=== PATIENT | female | born 1945 | race Caucasian/White ===

== ENCOUNTER 2018-04-30 08:37 | Outpatient (CLI) | payer MEDICARE, OTHER ==
[~2018-04-30] VITALS: Ht 170.2 cm; Wt 82.7 kg
--- NOTE | ~2018-04-30 | HP ---
PATIENT: BANDAR STEPHENS MEDICAL RECORD: [id number] ACCOUNT: [id number] LOCATION:DIRK : 47 ADMISSION DATE: 04/30/18 HISTORY AND PHYSICAL EXAMINATION DIAGNOSES: 1. Chest pain compatible with angina. 2. Visual disturbances. 3. Carotid vascular disease. 4. Coronary artery disease. 5. Hypertension. 6. Gastroesophageal reflux disease. HISTORY OF PRESENT ILLNESS: Mrs. Stephens presents with anginal symptomatology like that of her previous angina in an escalating unstable fashion. She as well has a history of carotid vascular disease and has had visual disturbances, right eye greater than left. REVIEW OF SYSTEMS: The patient reports easy bruising but reports no swollen glands. The patient reports no fever, no night sweats, no significant weight gain, no significant weight loss. No significant exercise tolerance. The patient reports no dry eyes, no irritation, no vision change. Patient reports no difficulty hearing and no ear pain. Patient reports no frequent nose bleeds or nose and sinus problems. Patient reports on arm pain on exertion. No shortness of breath while lying down. No history of heart murmur. Patient reports no cough, no wheezing or coughing up blood. Patient reports no abdominal pain, no vomiting. Normal appetite. No diarrhea and not vomiting blood. No nausea and no constipation. Patient reports no incontinence. No difficulty urinating. No hematuria. No increased frequency. Patient reports no muscle aches. No weakness, no arthralgias, no back pain. No swelling of the extremities. Patient reports no abnormal mole, no jaundice, no rashes. Reports no loss of consciousness. No weakness and no numbness. No seizures, dizziness, or headaches. The patient reports no depression, no sleep disturbance, feeling safe in a relationship and no alcohol abuse. Patient reports on fatigue. Reports no runny nose or sinus pressure. No itching, no hives, and no frequent sneezing. PHYSICAL EXAMINATION: GENERAL APPEARANCE: Well-nourished, well-developed, appears stated age. Level of distress, comfortable. PSYCHIATRIC: Mental status, alert, normal affect. Orientation, oriented to time, place and person. EYES: Lids and conjunctiva, noninjected. No discharge, no pallor. ENT: Lips, teeth, gums, normal dentition. Oropharynx, no cyanosis, no pallor. NECK: Carotid arteries, bilateral normal upstroke, no bruits, no thrills. JUGULAR VEINS: No jugular venous pressure or distention. CERVICAL LYMPH NODES: Nontender, nonenlarged. THYROID: Not enlarged. Nontender. No nodules. LUNGS: Respiratory effort, unlabored. CHEST: Normal curvature. No thoracic deformity. No chest wall tenderness. Percussion, resonant. Auscultation, clear. No wheezes, no rales, no rhonchi. CARDIOVASCULAR: Precordial exam, nondisplaced. No heaves or pericardial thrills. Rate and rhythm, regular. Heart sounds, normal S1, normal S2. No S3, no gallop, no rub. Systolic murmur, not heard. Diastolic murmur, not heard. EXTREMITIES: No cyanosis, no edema. Peripheral pulses, full and equal in all HISTORY AND PHYSICAL [id number] JUSTICE,BANDAR AUGUST extremities, except as noted. No bruits appreciated. ABDOMEN: Soft, nondistended. Normal aorta. No bruit. Nontender. No masses. Liver, nontender, no hepatomegaly. Spleen, nontender, no splenomegaly. MUSCULOSKELETAL: No joint tenderness. No joint swelling. No erythema. NEUROLOGICAL: Normal gait, normal strength, normal tone. SKIN: Warm and dry. OVERALL IMPRESSION: Anginal symptomatology, coronary artery disease, visual disturbances, carotid vascular disease. We will proceed with coronary angiography of 4 vessels, carotid and vertebral angiography. Further care depends upon findings of the angiography. TRANSINT:[id number] Voice Confirmation ID: [id number] DOCUMENT ID: [id number] HARMAN CAGLE MD at 1325 CC: [id number] DICTATION DATE: 04/30/18 1042 SUPERVISOR [employer]: 04/30/18 1145 DEP CLI 04/30/[address] [facility] [address] [id number]
--- NOTE | ~2018-04-30 | HEMODYNAMI ---
PATIENT:BANDAR STEPHENS MEDICAL RECORD: [id number] : 47 LOCATION:D.CAT ADMISSION DATE: 04/30/18 Generatedon:04/30/201811:00 Patient name: BANDAR STEPHENS Patient #: [id number] SSN: : 1945 Date of study: 04/30/2018 Page: Of Hemodynamic Procedure Report Patient Data Patient Demographics Procedure consent was obtained First Name: BANDAR Gender: Female Last Name: ANGELO : 1945 [facility] Initial: AUGUST Age: 72 year(s) Patient #: [id number] Race: Additional ID: [id number] Contact details Address: [address] [address] State: [place] City: [place] Zip code: [address] Past Medical History Allergies Allergen Reaction Date Comments Reported Sulfa drugs 11/20/2014 Sulfa drugs 04/30/2018 Admission Admission Data Admission Date: 04/30/2018 Admission Time: 8:37 Lab Results Lab Result Date: 04/30/2018 Lab Result Time: 0:00 Biochemistry Name Units Result Min Max BUN mg/dl 10 --(-*--)-- 7 18 Creatinine mg/dl 1 --(--*-)-- 0.6 1.3 CBC Name Units Result Min Max Hemoglobin g/dl 13 -*(----)-- 13.5 17.5 Procedure Procedure Types Cath Procedure Diagnostic Procedure [facility] w/Coronaries Peripheral Cath Diagnostic Procedure Cath Peripheral Four Vessel Arteriogram Procedure Description Procedure Date Procedure Date: 04/30/2018 Procedure Start Time: 10:46 Procedure End Time: 10:59 Procedure Staff Name Function Max Ivory MD Performing Physician Tony Robbins RT Monitor Paolo Leiva RN Nurse Rolly Aguilar RT Scrub Procedure Data Cath Procedure Fluoroscopy Diagnostic fluoroscopy Total fluoroscopy Time: 1.9 time: 1.9 min min Diagnostic fluoroscopy Total fluoroscopy dose: dose: 141.2 mGy 141.2 mGy Contrast Material Contrast Material Type Amount (ml) Isovue 300 96 Entry Location Entry Primary Successful Side Size Upsize Upsize Entry Closure Succes sful Closure Location (Fr) 1 (Fr) 2 (Fr) Remarks Device Remarks Femoral Right 5 Fr Exoseal artery Estimated blood loss: 10 ml Diagnostic catheters Device Type Used For End Catheter Placement MULTIPACK Pigtail 5 Fr Procedure catheter MULTIPACK JL 4.0 5Fr Procedure catheter MULTIPACK 3DRC 5Fr Procedure catheter DIAGNOSTIC JL 5 5Fr Procedure catheter ([id number]) Procedure Medications Medication Administration Route Dosage Oxygen etCO2 Nasal cannula 2 l/min Heparin Flush Bag added to field 2 bags (1000units/500ml NS) 0.9% NaCl I.V. 100 ml/hr Fentanyl I.V. 50 mcg Versed I.V. 1 mg Fentanyl I.V. 50 mcg Versed I.V. 1 mg Fentanyl I.V. 50 mcg Fentanyl I.V. 50 mcg Hemodynamics Rest HGB: 13 (g/dl) Heart Rate: 64 (bpm) Pressure Samples Time Site Value (mmHg) Purpose Heart Use Rate(bpm) 10:47 LV 106/12,11 Snapshot 69 Snapshots Pre Cath Intra NCS Post Cath Vital Signs Time Heart Resp SPO2 etCO2 NIBP (mmHg) Rhythm Pain Sedation Rate (ipm) (%) (mmHg) Status Level (bpm) 10:33:20 63 17 90 21.8 128/75(108) NSR 0 (11) 10(A) , No pain 10:37:39 65 17 100 20.3 130/72(112) NSR 0 (11) 10(A) , No pain 10:41:55 67 17 94 15 111/64(93) NSR 0 (11) 10(A) , No pain 10:46:11 65 16 96 18.8 104/62(76) NSR 0 (11) 10(A) , No pain 10:50:31 68 17 94 19.5 97/44(81) NSR 0 (11) 9(A) , No pain 10:54:43 73 16 98 24 103/59(89) NSR 0 (11) 9(A) , No pain 10:58:14 71 19 1.5 104/68(79) NSR 0 (11) 9(A) , No pain Medications Time Medication Route Dose Verified Delivered Reason Notes Effe ctiveness by by 10:37:07 Oxygen etCO2 2 Max Paolo Per Nasal l/min Cachorro Leiva RN physician cannula 10:37:16 Heparin Flush added 2 Max Boone used for Bag to bags Cachorro Leiva RN procedure (1000units/500ml field NS) 10:37:25 0.9% NaCl I.V. 100 Max Boone Per ml/hr Cachorro Leiva RN physician 10:45:50 Fentanyl I.V. 50 Max Boone for mcg Cachorro Leiva RN sedation 10:45:56 Versed I.V. 1 mg Max Boone for Cachorro Leiva RN sedation 10:48:04 Fentanyl I.V. 50 Max Hernandezy for mcg Cachorro Leiva RN sedation 10:48:08 Versed I.V. 1 mg Max Boone for Cachorro Leiva RN sedation 10:50:36 Fentanyl I.V. 50 Max Paolo for penelope Leiva RN sedation 10:51:13 Fentanyl I.V. 50 Max Hernandezy for penelope Leiva RN sedation Procedure Log Time Note 10:12:03 Paolo Leiva RN sent for patient. Start room use. 10:25:30 Informed consent obtained and on chart 10:25:35 Diagnostic Cath Status : Elective 10:26:05 Time tracking: Regular hours (M-F 7:00 - 5:00) 10:26:09 Plan of Care:Hemodynamics will remain stable., Cardiac rhythm will remain stable., Comfort level will be maintained., Respiratory function will remain adequate., Patient/ family verbilizes understanding of procedure., Procedure tolerated without complication., Recovers from procedure without complications.. 10:26:47 Patient received from Pre/Post Procedure Room to CCL 3 Alert and oriented. Tansferred to table in Supine position. 10:26:49 Warm blankets applied, and anton hugger turned on for patient comfort. 10:26:51 Correct patient and procedure confirmed by team. 10:31:45 ECG and BP/O2 sat monitors applied to patient. 10:32:09 Vital chart was started 10:36:28 Baseline sample Acquired. 10:36:31 Rhythm: sinus rhythm 10:36:33 Full Disclosure recording started 10:37:07 Oxygen 2 l/min etCO2 Nasal cannula was administered by Paolo Leiva RN; Per physician; 10:37:16 Heparin Flush Bag (1000units/500ml NS) 2 bags added to field was administered by Paolo Leiva RN; used for procedure; 10:37:25 0.9% NaCl 100 ml/hr I.V. was administered by Paolo Leiva RN; Per physician; 10:41:28 H&P Date Dictated: 04/30/2018 New H&P dictated by physician.. 10:41:50 Pre-procedure instructions explained to patient. 10:41:54 Pre-op teaching completed and patient verbalized understanding. 10:42:00 Family in waiting room. 10:42:02 Patient NPO since Midnight. 10:42:13 Patient allergic to Sulfa drugs 10:42:18 Is the patient allergic to Iodine/contrast media? No. 10:42:20 Is patient on blood thinner?Yes 10:42:24 ACC The patient was administered the following blood thiners within the last 24 hours: ACCPlavix 10:42:27 Patient diabetic? No. 10:42:33 Patient not . Patient is over age 55. 10:42:35 ----Pre-sedation anethsthesia assessment.---- 10:42:45 Previous problem with sedation/anesthesia? No ? 10:42:47 Snore? Yes 10:42:51 Sleep apnea? No 10:42:53 Deviated septum? No 10:42:54 Opens mouth fully? Yes 10:42:55 Sticks out tongue? Yes 10:42:58 Airway obstruction? No ? 10:43:02 Dentures? No ? 10:43:10 Pre procedure: right dorsailis pedis pulse 2+ Normal; easily identifiable; not easily obliterated 10:43:21 Patient pain scale 0/10 ?. 10:43:38 IV patent on arrival in left wrist with 0.9% NaCl at O. 10:44:50 Lab Result : BUN 10 mg/dl 10:44:50 Lab Result : Creatinine 1 mg/dl 10:44:50 Lab Result : Hemoglobin 13 g/dl 10:44:55 Lab results completed and on chart. 10:44:59 Right groin area was prepped with chlora-prep and draped in sterile fashion 10:45:03 Alarms reviewed by R. N. 10:45:04 Sharps counted by scrub and verified by RKeithNKeith 10:45:06 Physician arrived 10:45:06 --------ALL STOP TIME OUT------ 10:45:07 Final Timeout: patient, procedure, and site verified with staff and physician. All members of the team are in agreement. 10:45:08 Right groin site verified by team. 10:45:11 Physical assessment completed. ASA score P 2 - A patient with mild systemic disease as per Max Ivory MD. 10:45:16 Sedation plan: IV Moderate Sedation Medication:Versed, Fentanyl 10:45:50 Fentanyl 50 mcg I.V. was administered by Paolo Leiva RN; for sedation; 10:45:56 Versed 1 mg I.V. was administered by Paolo Leiva RN; for sedation; 10:45:56 Use device set Femoral Dx 10:45:57 ACIST Syringe (31188) opened to sterile field. 10:45:58 Bag Decanter (2002S) opened to sterile field. 10:45:58 Medline Cath Pack ([id number]) opened to sterile field. 10:45:59 DIAGNOSTIC WIRE .035 260cm J wire (563178) opened to sterile field. 10:46:01 ACIST Hand Control (76738) opened to sterile field. 10:46:02 ACIST Manifold (47689) opened to sterile field. 10:46:03 DIAGNOSTIC Multipack 5Fr catheter set ([id number]) opened to sterile field. 10:46:04 Tegaderm 4 x 4 (1626W) opened to sterile field. 10:46:05 SHEATH Prelude 5Fr 0.035 (APH-4B-32-035) opened to sterile field. 10:46:10 Procedure started. 10:46:14 Zero performed for pressure channel P1 10:46:22 Local anesthetic to right femoral artery with Lidocaine 2% by Max Ivory MD.INITIAL ACCESS ONLY 10:46:29 Zero performed for pressure channel P1 10:46:54 A 5 Fr sheath was inserted into the Right Femoral artery 10:47:01 A MULTIPACK Pigtail 5 Fr catheter was advanced over the wire and used for Procedure. 10:47:30 LV hemodynamics recorded. 10:47:32 LV gram done using OCAMPO 10:47:38 EF : 50 % 10:47:41 Catheter removed. 10:47:47 A MULTIPACK JL 4.0 5Fr catheter was advanced over the wire and used for Procedure. 10:48:04 Fentanyl 50 mcg I.V. was administered by Paolo Leiva RN; for sedation; 10:48:08 Versed 1 mg I.V. was administered by Paolo Leiva RN; for sedation; 10:48:50 Catheter removed. unable to cannulate vessel. 10:49:19 A MULTIPACK 3DRC 5Fr catheter was advanced over the wire and used for Procedure. 10:49:23 RCA angiography performed. 10:49:41 Right subclavian angiography performed 10:50:13 Left carotid angiography performed. 10:50:30 Left subclavian angiography performed 10:50:36 Fentanyl 50 mcg I.V. was administered by Paolo Leiva RN; for sedation; 10:50:43 Catheter removed. 10:50:55 A DIAGNOSTIC JL 5 5Fr catheter ([id number]) was advanced over the wire and used for Procedure. 10:51:13 Fentanyl 50 mcg I.V. was administered by Paolo Leiva RN; for sedation; 10:51:22 LCA angiography performed. 10:52:29 Catheter removed. 10:52:34 EXOSEAL 5Fr (EX500) opened to sterile field. 10:52:46 Sheath removed intact; hemostasis achieved with Exoseal to the Right Femoral artery. 10:52:49 Procedure ended.(Physican Out) 10:53:01 Fluoroscopy time 01.90 minutes. 10:53:43 Fluoroscopy dose: 141.2 mGy 10:53:43 Flurop Dose total: 141.2 10:53:51 Contrast amount:Isovue 300 96ml. 10:53:53 Sharps counted by scrub and verified by R.N. 10:54:29 Insertion/operative site no bleeding no hematoma. 10:55:11 Procedure type changed to Cath procedure, Diagnostic procedure, LHC, LHC w/Coronaries, Peripheral Cath Diagnostic Procedure, Cath Peripheral, Four Vessel Arteriogram 10:57:16 Post-op/insertion site Right Femoral artery dressed using a 4 x 4 and Tegaderm. 10:57:21 Post right femoral artery:stable 10:57:25 Post Procedure Pulses reassessed and unchanged 10:57:30 Post-procedure physical assessment completed. ASA score P 2 - A patient with mild systemic disease as per Max Ivory MD. 10:57:39 Post procedure rhythm: sinus bradycardia 10:57:43 Estimated blood loss: 10 ml 10:57:44 Post procedure instruction explained to patient.Patient verbalizes understanding. 10:57:45 Patient needs reinforcement of post procedure teaching. 10:57:47 Procedure and supply charges have been captured, reviewed, submitted and are correct. 10:58:53 Vital chart was stopped 10:58:53 See physician's report for complete and final results. 10:59:00 Report given to Pre/Post Procedure Room. 10:59:03 Patient transfered to Pre/Post Procedure Room with Stretcher. 10:59:05 Procedure ended. 10:59:05 Full Disclosure recording stopped 10:59:12 End room use (Document Last) Device Usage Item Name Manufacture Quantity Catalog Number Hospital Part Current M inimal Lot# / Charge Number Stock Stock Serial# Code ACIST Syringe Acist 1 07783 767529 500392 [id number] 2 0 (84331) [employer] Bag Decanter Microtek 1 2001S 056270 63397 952438 5 () Medical Inc. Medline Cath Cardinal 1 [id number] 677746 97349 308323 5 Pack Health ([id number]) DIAGNOSTIC WIRE [place] 1 286776 535288 899343 483944 3 0 .035 260cm J wire (315869) ACIST Hand Acist 1 44416 596823 556338 976213 5 Control (08409) [employer] ACIST Manifold Acist 1 79005 411617 671147 588140 5 (85196) [employer] Inc DIAGNOSTIC Cardinal 1 [id number] 943247 56595 480598 3 0 Multipack 5Fr Health catheter set ([id number]) Tegaderm 4 x 4 3M 1 1626W 521317 452716 755031 5 (1626W) SHEATH Prelude Merit 1 [id number] 902418 633943 808675 5 5Fr 0.035 Medical (COA-0R-24-035) MULTIPACK Cardinal 1 074068 5 Pigtail 5 Fr Health catheter MULTIPACK JL Cardinal 1 [id number] 5 4.0 5Fr Health catheter MULTIPACK 3DRC Cardinal 1 926309 5 5Fr catheter Health DIAGNOSTIC JL 5 Cardinal 1 [id number] 307108 879918 780000 5 5Fr catheter Health ([id number]) EXOSEAL 5Fr Cardinal 1 EX500 148109 480724 429452 1 0 (EX500) Health Signature Audit [place] Stage Time Signature Unsigned Intra-Procedure 04/30/2018 Tony Robbins 11:00:24 AM RT(R) (CV) Signatures Monitor : Tony Robbins RT Signature : Date : Time : [address] [place] [address]
--- NOTE | ~2018-04-30 | OP ---
PATIENT NAME: BANDAR STEPHENS MEDICAL RECORD: [id number] :47 LOCATION:D.CAT ADMISSION DATE: SURGEON: HARMAN CAGLE MD DATE OF OPERATION: 04/30/2018 PROCEDURES: 1. Left heart catheterization. 2. Selective coronary angiography. 3. Left ventriculogram. 4. Four-vessel carotid and vertebral angiography. INDICATION: Chest pain compatible with angina, coronary artery disease, carotid vascular disease, visual disturbances. PROCEDURE IN DETAIL: After informed consent was obtained and after a detailed explanation of risks, benefits as well as alternative therapies, the patient elected to proceed with angiogram and heart catheterization. The right femoral area was prepped and draped in normal sterile fashion. Right femoral artery was cannulated via modified Seldinger technique with placement of 5-Spanish sheath. All catheters exchanged through this sheath. FINDINGS: There was subselection of each subclavian as well as the left carotid. RIGHT SIDE: The common internal and external carotids have mild plaquing, no greater than 20%, no flow-limiting stenosis. Vertebral artery has no significant disease. LEFT SYSTEM: The common internal and external carotids have mild plaquing, none greater than 10% to 20%, no flow-limiting stenosis. Vertebral artery has no significant disease. Left ventriculogram was performed in standard 30-degree OCAMPO view, reveals good cardiac wall motion throughout all segments. Overall ejection fraction estimated 60%. SELECTIVE CORONARY ANGIOGRAPHY: 1. Left main has no significant angiographic disease. 2. Left anterior descending has previously placed stents in the LAD and diagonal. These are widely patent with no significant restenosis. No disease elsewise at the LAD or its branches. 3. Left circumflex has moderate irregularities, but no flow-limiting stenosis. 4. Right coronary has mild irregularities, but no flow-limiting stenosis. OVERALL IMPRESSION: Wide patency of the previously placed stents in the LAD and diagonal. No disease elsewise. Continue medical management of the coronary artery disease and cardiac risk factors. TRANSINT:[id number] Voice Confirmation ID: [id number] DOCUMENT ID: [id number] OPERATIVE REPORT [id number] BANDAR STEPHENS HARMAN CAGLE MD at 1325 CC: [id number] DICTATION DATE: 04/30/18 1057 EXECUTIVE SALES MANAGER: 04/30/18 1240 DEP CLI 04/30/18 [facility] [address] [facility] [place] [address]
[~2018-04-30 08:37] MED LIST: BAYER CHEWABLE81 MG PO; BYSTOLIC5 MG PO; COLACE100 MG PO; PLAVIX75 MG PO; PRINIVIL20 MG PO
[2018-04-30] MEDS ORDERED: ALPHAGAN P 0.155 ML EACH EYE (08:54)
[2018-04-30] MEDS ORDERED: HYZAAR 50-12.51 TAB PO (08:56)
[2018-04-30] MEDS ORDERED: MULTIPLE VITAMI1 TA1 PO (08:57)
[2018-04-30] MEDS ORDERED: OMEPRAZOLE40 MG PO (08:57)
[2018-04-30 09:21] VITALS: BP 166/90; Ht 170.2 cm; Wt 82.7 kg
[2018-04-30 09:23] LABS: BASOPHILS 0.4 % (0-2); EOSINOPHILS 3.4 % (0-7); HEMATOCRIT 38.8 % (36.0-48.0); IMMATURE GRANULOCYTES 0.3 % (0-5); LYMPHOCYTES 19.5 % (15-50); MCH 31.2 pg (26.0-34.0); MCHC 33.5 g/dL (31.0-37.0); MEAN PLATELET VOLUME 9.5 fL (7.4-10.4); NEUTROPHILS 64.4 % (40-80); PLATELET COUNT 350 10x3/uL (130-400); RBC 4.17 10x6/uL (4.00-5.40)
[2018-04-30 09:35] LABS: ANION GAP 13.5 mmol/L (8-16); CALCIUM 8.6 mg/dL (8.5-10.1); CARBON DIOXIDE 28.1 mmol/L (21.0-32.0); POTASSIUM - SERUM 3.6 mmol/L (3.5-5.1)
== END 2018-04-30 13:22 | disposition home or self-care (01) ==
LOC: D.CATH 08:37
PROVIDERS: Internal Medicine Interventional Cardiology
DX: I25.119 Atherosclerotic heart disease of native coronary artery with unspecified angina pectoris (principal); I65.23 Occlusion and stenosis of bilateral carotid arteries; H53.9 Unspecified visual disturbance; Z95.5 Presence of coronary angioplasty implant and graft; Z01.812 Encounter for preprocedural laboratory examination

== ENCOUNTER → 2018-05-10 12:52 | Outpatient (CLI) | payer MEDICARE, OTHER ==
[2018-04-30 09:21] VITALS: BMI 28.5
[~2018-05-10 12:52] MED LIST changes: +ALPHAGAN P 0.155 ML EACH EYE; +HYZAAR 50-12.51 TAB PO; +MULTIPLE VITAMI1 TA1 PO; +OMEPRAZOLE40 MG PO
== END | disposition home or self-care (01) ==
LOC: D.CT 12:52
DX: R10.9 Unspecified abdominal pain (principal)

== ENCOUNTER → 2018-07-23 17:10 | Outpatient (CLI) | payer MEDICARE, OTHER ==
[2018-04-30 09:21] VITALS: BMI 28.5
== END | disposition home or self-care (01) ==
LOC: D.MAMMO 05-21 15:00
DX: Z12.31 Encounter for screening mammogram for malignant neoplasm of breast (principal)

== ENCOUNTER 2019-01-15 11:55 | Observation (INO) | payer MEDICARE, OTHER ==
[~2019-01-15] VITALS: Ht 170.2 cm; Wt 81.4 kg
--- NOTE | ~2019-01-15 | HEMODYNAMI ---
PATIENT:BANDAR STEPHENS MEDICAL RECORD: [id number] : 47 LOCATION:[facility] ADMISSION DATE: 01/15/19 Generatedon:01/16/201912:46 Patient name: BANDAR STEPHENS Patient #: [id number] SSN: : 1945 Date of study: 01/16/2019 Page: Of Hemodynamic Procedure Report Patient Data Patient Demographics Procedure consent was obtained First Name: BANDAR Gender: Female Last Name: ANGELO : 1945 [facility] Initial: AUGUST Age: 73 year(s) Patient #: [id number] Race: Additional ID: [id number] Contact details Address: [place] [address] State: [place] City: [place] Zip code: [address] Past Medical History Allergies Allergen Reaction Date Comments Reported Sulfa drugs 11/20/2014 Sulfa drugs 04/30/2018 Admission Admission Data Admission Date: 01/15/2019 Admission Time: 11:55 Room #: [facility] Procedure Procedure Types Cath Procedure Diagnostic Procedure [facility] w/Coronaries Cardioversion External PCI Procedure PTCA PTCA Initial PTCA Additional Procedure Description Procedure Date Procedure Date: 01/16/2019 Procedure Start Time: 12:24 Procedure End Time: 12:40 Procedure Staff Name Function Max Ivory MD Performing Physician Rolly Aguilar RT Monitor Margarita Fountain RT Scrub Elvin Kauffman RN Nurse Cecil Frederick MD Additional personnel Procedure Data Cath Procedure Fluoroscopy Diagnostic fluoroscopy Total fluoroscopy Time: 3.4 time: 3.4 min min Diagnostic fluoroscopy Total fluoroscopy dose: 596 dose: 596 mGy mGy Contrast Material Contrast Material Type Amount (ml) Isovue 300 70 Entry Location Entry Primary Successful Side Size Upsize Upsize Entry Closure Chicas ccessful Closure Location (Fr) 1 (Fr) 2 (Fr) Remarks Device Remarks Radial Right 6 Fr Mechanical artery Short Compression Estimated blood loss: 10 ml Diagnostic catheters Device Type Used For End Catheter Placement DIAGNOSTIC Canby 110cm 5 Procedure Fr catheter ([id number]) Procedure Complications No complications Procedure Medications Medication Administration Route Dosage 0.9% NaCl I.V. 100 ml/hr Oxygen etCO2 Nasal cannula 2 l/min Heparin Flush Bag added to field 2 bags (1000units/500ml NS) Lidocaine 2% added to field 20 Radial Cocktail added to field 1 syringe (Verapomil 2mg/Nitro 400mcg/Heparin 1500units) Refer to Anesthesia Notes for Sedation Medications Radial Cocktail I.A. 1 syringe (Verapomil 2mg/Nitro 400mcg/Heparin 1500units) Heparin Bolus I.V. 4000 units Integrilin (Bolus I.V. 7.3 ml 2mg/ml) Integrilin (Bolus wasted 2.7 ml 2mg/ml) Hemodynamics Rest Heart Rate: 81 (bpm) Snapshots Pre Cath Intra NCS Post Cath Vital Signs Time Heart Resp SPO2 etCO2 NIBP (mmHg) Rhythm Pain Sedation Rate (ipm) (%) (mmHg) Status Level (bpm) 12:20:51 76 20 99 5.1 156/108(143) NSR 0 (11) 10(A) , No pain 12:25:09 83 22 95 25.1 146/107(127) NSR 0 (11) 10(A) , No pain 12:29:19 72 18 92 28.1 111/76(92) NSR 0 (11) 8(A) , No pain 12:33:25 65 32 92 12.5 108/70(84) NSR 0 (11) 8(A) , No pain 12:37:33 61 31 93 3.7 107/60(77) NSR 0 (11) 9(A) , No pain Medications Time Medication Route Dose Verified Delivered Reason Not es Effectiveness by by 12:20:07 0.9% NaCl I.V. 100 Elvin Elvin Per physician ml/hr Jamari Kauffman RN RN 12:20:15 Oxygen etCO2 2 l/min Elvin Elvin for low 02 sats Nasal Sheritaigan Jamari cannula RN RN 12:20:29 Heparin Flush added 2 bags Elvin Elvin used for Bag to Jamari Kauffman procedure (1000units/500ml field RN RN NS) 12:20:39 Lidocaine 2% added 20ml Elvin Elvin for local to vial Lorigan Lorigan anesthetic field RN RN 12:20:48 Radial Cocktail added 1 Elvin Elvin used for (Verapomil to syringe Jamari Kauffman procedure 2mg/Nitro field RN RN 400mcg/Heparin 1500units) 12:22:33 Refer to Elvinmilagro Oconnor for sedation Anesthesia Notes Jamari Kauffman for Sedation RN RN Medications 12:24:24 Radial Cocktail I.A. 1 Elvin Max for (Verapomil syringe Jamari Ivory MD vasodilation 2mg/Nitro RN 400mcg/Heparin 1500units) 12:32:44 Heparin Bolus I.V. 4000 Elvin Elvin for units Jamari Kauffman anticoagulation RN RN 12:33:01 Integrilin I.V. 7.3 ml Elvin Elvin for (Bolus 2mg/ml) Jamari Kauffman antiplatelet RN RN therapy 12:33:15 Integrilin wasted 2.7 ml Elvin Elvin to sharp's (Bolus 2mg/ml) Jamari Kauffman RN supervisor quality control Log Time Note 11:45:29 Rolly Aguilar RT(R) sent for patient. Start room use. 11:51:37 Time tracking: Regular hours (M-F 7:00 - 5:00) 11:51:43 Plan of Care:Hemodynamics will remain stable., Cardiac rhythm will remain stable., Comfort level will be maintained., Respiratory function will remain adequate., Patient/ family verbilizes understanding of procedure., Procedure tolerated without complication., Recovers from procedure without complications.. 12:00:25 Cecil Frederick MD present and monitoring patient for TIVA. 12:06:23 Patient received from Med II to CCL 2 Alert and oriented. Tansferred to table in Supine position. 12:06:25 Warm blankets applied, and anton hugger turned on for patient comfort. 12:06:25 Correct patient and procedure confirmed by team. 12:06:28 Signed procedure consent form obtained from patient. 12:06:30 ECG and BP/O2 sat monitors applied to patient. 12:19:44 Vital chart was started 12:19:45 Baseline sample Acquired. 12:19:55 Rhythm: atrial fibrillation 12:19:57 Full Disclosure recording started 12:20:03 H&P Date Dictated: 01/16/2019 Within 30 days and on chart., H&P Addendum completed by physician on day of procedure. (MUST COMPLETE FOR ALL OUTPATIENTS). 12:20:04 Pre-procedure instructions explained to patient. 12:20:05 Pre-op teaching completed and patient verbalized understanding. 12:20:06 Family in patients room. 12:20:07 0.9% NaCl 100 ml/hr I.V. was administered by Elvin Kauffman RN; Per physician; 12:20:07 Patient NPO since Midnight. 12:20:10 Is the patient allergic to Iodine/contrast media? No. 12:20:12 Is patient on blood thinner?Yes 12:20:14 ACC The patient was administered the following blood thiners within the last 24 hours: Eliquis 12:20:15 Oxygen 2 l/min etCO2 Nasal cannula was administered by Elvin Kauffman RN; for low 02 sats; 12:20:16 Patient diabetic? No. 12:20:19 Previous problem with sedation/anesthesia? No ? 12:20:19 Snore? Yes 12:20:20 Sleep apnea? No 12:20:21 Deviated septum? No 12:20:22 Opens mouth fully? Yes 12:20:22 Sticks out tongue? Yes 12:20:24 Airway obstruction? No ? 12:20:25 Dentures? No ? 12:20:28 Pre procedure: right dorsailis pedis pulse 1+ Palpable, but thready & weak; easily obliterated 12:20:29 Heparin Flush Bag (1000units/500ml NS) 2 bags added to field was administered by Elvin Kauffman RN; used for procedure; 12:20:30 Modified Sai's test Ulnar < 7 seconds 12:20:31 Patient pain scale 0/10 ?. 12:20:37 IV patent on arrival in left forearm with 0.9% NaCl at [facility]. 12:20:39 Lidocaine 2% 20ml vial added to field was administered by Elvin Kauffman RN; for local anesthetic; 12:20:39 Lab results completed and on chart. 12:20:42 Right Radial & Right Groin area was prepped with chlora-prep and draped in sterile fashion 12:20:43 Alarms reviewed by R. N. 12:20:43 Sharps counted by scrub and verified by R.N. 12:20:45 --------ALL STOP TIME OUT------ 12:20:45 Final Timeout: patient, procedure, and site verified with staff and physician. All members of the team are in agreement. 12:20:47 Right Radial & Right Groin site verified by team. 12:20:48 Radial Cocktail (Verapomil 2mg/Nitro 400mcg/Heparin 1500units) 1 syringe added to field was administered by Elvin Kauffman RN; used for procedure; 12:20:50 Maximum allowable Isovue 300 dose 300ml. Physician notified. (300ml for normal creatinines. For patients with creatinine of 1.7 or higher multiply weight(kg) x 5 divided by creatinine.) 12:20:54 Fire Safety Assessment: A--An alcohol-based skin anteseptic being used preoperatively., C--Open oxygen or nitrous oxide is being used., D--An ESU, laser, or fiber-optic light is being used. 12:20:56 Physical assessment completed. ASA score P 2 - A patient with mild systemic disease as per Max Ivory MD. 12:20:59 Sedation plan: IV Moderate Sedation Medication:Versed, Fentanyl 12:22:33 Refer to Anesthesia Notes for Sedation Medications was administered by Elvin Kauffman RN; for sedation; 12:23:52 Procedure started. 12:24:05 Local anesthetic to right radial artery with Lidocaine 2% by Max Ivory MD.INITIAL ACCESS ONLY 12:24:24 Radial Cocktail (Verapomil 2mg/Nitro 400mcg/Heparin 1500units) 1 syringe I.A. was administered by Max Ivory MD; for vasodilation; 12:24:53 Use device set Radial Dx or PCI 12:24:55 Tegaderm 4 x 4 (1626W) opened to sterile field. 12:24:56 ACIST Manifold (92017) opened to sterile field. 12:24:56 ACIST Hand Control (99180) opened to sterile field. 12:24:58 ACIST Syringe (24872) opened to sterile field. 12:24:58 Medline Cath Pack ([id number]) opened to sterile field. 12:24:58 Bag Decanter (2002) opened to sterile field. 12:24:59 DIAGNOSTIC WIRE .035 260cm J wire (590253) opened to sterile field. 12:24:59 MBrace Wrist Support ([id number]) opened to sterile field. 12:25:22 Quick combo pads placed on patients chest and back. 12::30 Quick Combo opened to sterile field. 12::01 Defibrillator synced and charged to 275 Joules. 12::21 Shock delivered. 12::25 Patient cardioverted to sinus rhythm . 12::29 SHEATH 6FR Slender (80-1060) opened to sterile field. 12::44 A 6 Fr Short sheath was inserted into the Right Radial artery 12::54 A DIAGNOSTIC Canby 110cm 5 Fr catheter (860340) was advanced over the wire and used for Procedure. 12:28:15 LV angiography performed. 12:28:16 LV gram done using OCAMPO 12::21 EF : 35 % 12::24 Injector settings: Ml/sec: 7, Volume: 15, 12:29:06 RCA angiography performed. 12:30:21 Use device set TAUTH PCI 12:30:28 CHOICE PT Extra Support 182cm wire ([id number]) opened to sterile field. 12:30:31 INFLATOR Merit BasixCompak (NP1261) opened to sterile field. 12:30:39 GUIDE 6FR XBLAD 3.5 catheter ([id number]) opened to sterile field. 12:30:48 LCA angiography performed. 12:30:50 Catheter removed. 12:31:08 6 Fr XBLAD 3.5 guide catheter was inserted over the wire 12:31:32 CPTXS wire advanced. 12:32:15 Wire advanced across lesion. 12:32:44 Heparin Bolus 4000 units I.V. was administered by Elvin Kauffman RN; for anticoagulation; 12:32:55 Inflate balloon Inflation number: 1 A EUPHORA 2.5 x 12 Balloon ([id number]) was prepped and advanced across the 1st Diag, then inflated to 17 ISABELLA for 0:10 (min:sec). 12:33:01 Integrilin (Bolus 2mg/ml) 7.3 ml I.V. was administered by Elvin Kauffman RN; for antiplatelet therapy; 12:33:15 Integrilin (Bolus 2mg/ml) 2.7 ml wasted was administered by Elvin Kauffman RN; to sharp's; 12:34:16 Wire redirected to LAD. 12:34:50 Inflation number: 1 The EUPHORA 2.5 x 12 Balloon ([id number]) was reinflated across the Mid LAD, to 13 ISABELLA for 0:10 (min:sec). 12:35:08 Multiple inflations made at 13 Atms. 12:35:28 TR BAND Standard ([id number]) opened to sterile field. 12:35:41 Balloon removed over the wire. 12:35:42 Wire removed. 12:35:42 Guide catheter removed. 12:36:04 Sheath removed intact; hemostasis achieved with Mechanical Compression to the Right Radial artery. 12:36:06 Procedure ended.(Physican Out) 12:38:35 Fluoroscopy time 03.40 minutes. 12:38:38 Fluoroscopy dose: 596 mGy 12:38:38 Flurop Dose total: 596 12:38:44 Contrast amount:Isovue 300 70ml. 12:38:48 Sharps counted by scrub and verified by R.N. 12:38:50 Insertion/operative site no bleeding no hematoma. 12:38:56 TR band inflated with 12cc of air. 12:39:01 Post Procedure Pulses reassessed and unchanged 12:39:06 Post-procedure physical assessment completed. ASA score P 2 - A patient with mild systemic disease as per Max Ivory MD. 12:39:09 Post procedure rhythm: unchanged. 12:39:11 Estimated blood loss: 10 ml 12:39:12 Post procedure instruction explained to patient.Patient verbalizes understanding. 12:39:13 Patient needs reinforcement of post procedure teaching. 12:39:28 Procedure type changed to Cath procedure, Diagnostic procedure, LHC, LHC w/Coronaries, Cardioversion External, PCI procedure, PTCA, PTCA Initial, PTCA Additional 12:39:30 Procedure and supply charges have been captured, reviewed, submitted and are correct. 12:39:32 Procedure Complication : No complications 12:40:27 Vital chart was stopped 12:40:28 See physician's report for complete and final results. 12:40:31 Report given to PCU. 12:40:34 Patient transfered to PCU with Bed. 12:40:35 Procedure ended. 12:40:35 Full Disclosure recording stopped 12:43:51 End room use (Document Last) Intervention Summary Intervention Notes Time ActionType Lesion and Equipment Action# Pressure Duration Attributes Used 12:32:55 Inflate 1st Diag EUPHORA 1 17 00:10 balloon 2.5 x 12 Balloon ([id number]) 12:34:50 Reinflate Mid LAD EUPHORA 1 13 00:10 balloon 2.5 x 12 Balloon ([id number]) Device Usage Item Name Manufacture Quantity Catalog Number Hospital Part Current Minim al Lot# / Charge Number Stock Stock Serial# Code Tegaderm 4 3M 1 1626W [id number] 643977 784002 5 x 4 (1626W) ACIST Acist 1 82150 094735 194692 847787 5 Manifold Medical (13913) Systems Inc ACIST Hand Acist 1 43642 225822 406867 251481 5 Control Medical (65438) Systems Inc ACIST Acist 1 43860 431321 570042 691390 20 Syringe Medical (78604) Systems Inc Medline Medline 1 [id number] 854421 19411 358846 5 Cath Pack ([id number]) Bag Microtek 1 2001S 890297 74295 246408 5 DecRogate Inc. () DIAGNOSTIC [place] 1 085369 621614 587797 423715 30 WIRE .035 260cm J wire (404839) MBrace Advanced 1 140-0250-00 405325 42165 238658 5 Wrist Vascular Support Dynamics (498946339) Quick Combo Trading Blox Systems 1 95405-925770 425549 766225 085681 5 SHEATH 6FR Terumo 1 [id number] 354857 869230 979653 5 Slender (80-1060) DIAGNOSTIC Terumo 1 40-0033 234094 156397 956990 5 Canby 110cm 5 Fr catheter (322536) CHOICE PT [place] 1 [id number] 783954 910207 879938 5 Extra Scientific Support 182cm wire ([id number]) INFLATOR Merit 1 TA3369 369513 223800 442078 15 Competitive [employer] Ventures Medical BasixCompak (ZK0876) GUIDE 6FR Cardinal 1 [id number] 961755 557789 336340 10 XBLAD 3.5 Health catheter (34355371) EUPHORA 2.5 Medtronic 1 [id number] 569664 667104 805049 5 [id number] x 12 Balloon (UTL2227P) TR BAND Terumo 1 [id number] 044942 213008 975076 40 Standard ([id number]) Signature Audit [place] Stage Time Signature Unsigned Intra-Procedure 01/16/2019 Rolly Aguilar 12:46:31 PM RT(R) Signatures Monitor : Rolly Aguilar RT Signature : Date : Time : [address] [address]
--- NOTE | 2019-01-15 12:13 | NUR ---
TRANSFER FROM ADMISSIONS BY W/C. OREINTED TO ROOM. CALL LIGHT IN REACH. WILL CONT. PLAN OF CARE.
--- NOTE | 2019-01-15 12:34 | NUR ---
IV STARTED TO LEFT WRIST WITH 20 GAUGE CATH X1 STICK AND FLUSHED WITH NS. LINE IS PATENT.
[2019-01-15] MEDS ORDERED: COLACE100 MG PO (12:44)
--- NOTE | 2019-01-15 12:44 | NUR ---
EKG COMPLETED AND ON CHART.
[2019-01-15 12:47] VITALS: BP 142/92; Ht 170.2 cm; Wt 81.4 kg
[2019-01-15 13:47] LABS: CALC OSMOLALITY 282 mosm/kg (275-300); CALCIUM 8.1 mg/dL (8.5-10.1); CARBON DIOXIDE 27.5 mmol/L (21.0-32.0); CHLORIDE - SERUM 102 mmol/L (98-107); CREATINE KINASE 41 UL (21-215); CREATININE - SERUM 1.2 mg/dL (0.6-1.3); GLUCOSE 223 mg/dL (74-106); POTASSIUM - SERUM 3.5 mmol/L (3.5-5.1); SODIUM 138 mmol/L (136-145); TROPONIN-I < 0.017 ng/mL (0.000-0.060); UREA NITROGEN 12 mg/dL (7-18); eGFR NON AFRICAN AMERICAN 47 mL/min (90-120)
[2019-01-15 14:08] LABS: CKMB 0.7 U/L (0.0-3.6)
[2019-01-15 17:26] VITALS: BP 138/76
[2019-01-15 18:41] LABS: CKMB 0.6 U/L (0.0-3.6); CREATINE KINASE 28 UL (21-215)
[2019-01-15 18:48] LABS: TROPONIN-I < 0.017 ng/mL (0.000-0.060)
--- NOTE | 2019-01-15 19:27 | NUR ---
RESUMING PATIENT CARE. PATIENT RESTING COMFORTABLY IN BED. RESPIRATIONS ARE EVEN AND UNLABORED. VISITORS AT BEDSIDE. DENIES NEEDS AT THIS TIME. NO S/S OF DISTRESS. NO C/O PAIN. CALL LIGHT WITHIN REACH. WILL CPOC.
[2019-01-15 20:00] VITALS: BP 139/78
--- NOTE | 2019-01-15 22:51 | NUR ---
PATIENT RESTING COMFORTABLY IN BED. RESPIRATIONS ARE EVEN AND UNLABORED. NO S/S OF DISTRESS. DENIES NEEDS AT THIS TIME. NO S/S OF DISTRESS. NO C/O PAIN. CALL LIGHT WITHIN REACH. WILL CPOC.
[2019-01-16 00:30] VITALS: BP 121/73
[2019-01-16 00:53] LABS: CKMB 0.3 U/L (0.0-3.6); CREATINE KINASE 27 UL (21-215); TROPONIN-I < 0.017 ng/mL (0.000-0.060)
--- NOTE | 2019-01-16 03:30 | NUR ---
PATIENT RESTING COMFORTABLY IN BED. RESPIRATIONS ARE EVEN AND UNLABORED. NO S/S OF DISTRESS. CALL LIGHT WITHIN REACH. WILL CPOC.
[2019-01-16 05:00] VITALS: BP 106/71
--- NOTE | 2019-01-16 07:30 | NUR ---
RECEIVED PT IN BED AAOX4 RESP UNLABORED SKIN W/D COLOR WNL PT DENIES ANY NEEDS OR DISCOMFORT AT THIS TIME TELEMETRY SHOWS CAF RATE 73
[2019-01-16 10:02] VITALS: BP 132/79
--- NOTE | 2019-01-16 12:43 | EC ---
PATIENT:BANDAR STEPHENS DATE OF SERVICE: 01/15/19 SEX: F MEDICAL RECORD: [id number] DATE OF : [birth year] LOCATION:D.M2 D.211 AGE OF PATIENT: 73 ADMISSION DATE: 01/15/19 REFERRING PHYSICIAN: INTERPRETING PHYSICIAN: HARMAN IVORY MD ECHOCARDIOGRAM REPORT ECHO CHARGES 4 ECHO COMPLETE Date: 01/15/19 CLINICAL DIAGNOSIS: A-FIB ECHOCARDIOGRAPHIC MEASUREMENTS (adult normal given) AC root (d.<3.7cm) 3.3 cm LV Septum d (<1.2 cm> 1.7 cm Valve Excursion 2.1 cm LV Septum (systole) 1.9 cm Left Atria (s.<4.0cm> 5.4 cm LVPW d(<1.2cm) 1.5 cm RV (d.<2.3cm) 3.0 cm LVPW (sytole) 2.2 cm LV diastole(<5.6CM) 5.1 cm MV E-F(>70mm/sec) cm LV systole 3.6 cm LVOT Diameter 1.9 cm MV exc.(>10mm) cm Est.ejection fraction (50-75%) % DOPPLER: LVIT cm/sec A cm/sec E 131 cm/sec LA cm/sec RVSP 39.4 mmHg LVOT 78.0 cm/sec AOP1/2T m/s Asc. Ao 114 cm/sec RVOT 46.0 cm/sec RA cm/sec PA 71.0 cm/sec AV Gradient Peak 5.2 mmHg AV Mean 2.3 mmHg AV Area 1.7 cm MV Gradient Peak 7.6 mmHg MV Mean 2.7 mmHg MV Area cm COMMENTS: Filter Press Supervisor: Dwight YAÑEZOE [employer] Brake Adjuster: 1 Dr. Ivory TAPE# PACS Pericardial Effusion N DATE OF SERVICE: 01/15/2019 PROCEDURE: Echocardiogram. FINDINGS: 1. Left ventricular chamber size is within normal limits. Left ventricular systolic function is normal. Overall ejection fraction estimated at 45% to 50%. 2. Left atrium is enlarged at 5.4 cm. Right atrium and right ventricular chamber sizes are as well moderately dilated. 3. Valvular structures have normal structure and motion. ECHOCARDIOGRAM REPORT [id number] BANDAR STEPHENS 4. Doppler interrogation reveals moderate mitral regurgitation, moderate tricuspid regurgitation, no other valvular insufficiency or stenosis. Pulmonary systolic pressure is estimated 39 mmHg. 5. No evidence of pericardial effusion or left ventricular thrombus. TRANSINT:[id number] Voice Confirmation ID: [id number] DOCUMENT ID: [id number] HARMAN IVORY MD at 1243 CC: [id number] DICTATION DATE: 01/15/19 1549 GAME PRODUCER: 01/15/19 1601 ADM IN [place] [id number] [place] [address]
[2019-01-16] MEDS ORDERED: PLAVIX75 MG PO (12:50)
--- NOTE | 2019-01-16 12:53 | NUR ---
RECEIVED CALL FROM [facility] TO BE DISCHARGED FROM [facility]
--- NOTE | 2019-01-16 13:15 | NUR ---
2L NC, NO RESP DISTRESS. RIGHT WRIST TR BAND CDI, NO BLEEDING OR HEMATOMA NOTED. NO C/O PAIN OR NAUSEA. VSS. CALL LIGHT WITHIN REACH.
--- NOTE | 2019-01-16 13:45 | NUR ---
RESTING QUIETLY WITH EYES CLOSED. RIGHT WRIST TR BAND CDI, NO BLEEDING OR HEMATOMA NOTED. DENIES ANY NEEDS. VSS. WILL CONTINUE TO MONITOR.
[2019-01-16] MEDS ORDERED: XARELTO20 MG PO (13:57)
[2019-01-16] MEDS ORDERED: BETAPACE 80 MG80 MG PO (13:57)
--- NOTE | 2019-01-16 14:00 | NUR ---
SIPPING ON DRINK AND EATING SANDWICH WITH NO C/O NAUSEA. RIGHT WRIST TR BAND CDI, NO BLEEDING OR HEMATOMA NOTED. DENIES ANY OTHER NEEDS AT THIS TIME. VSS. CALL LIGHT WITHIN REACH.
--- NOTE | 2019-01-16 14:30 | NUR ---
RESTING QUIETLY WITH EYES CLOSED. RIGHT WRIST TR BAND CDI, NO BLEEDING NOTED. 2L NC, NO RESP DISTRESS. NO NEEDS VOICED. VSS. WILL CONTINUE TO MONITOR.
--- NOTE | 2019-01-16 15:00 | NUR ---
CONTINUES TO REST COMFORTABLY WITH NO C/O. RIGHT WRIST TR BAND CDI, NO BLEEDING OR HEMATOMA NOTED. DENIES ANY NEEDS. VSS. WILL CONTINUE TO MONITOR.
--- NOTE | 2019-01-16 15:58 | NUR ---
3CC OF AIR REMOVED FROM TR BAND WITH NO BLEEDING NOTED. VSS. WILL CONTINUE TO MONITOR.
--- NOTE | 2019-01-16 16:15 | NUR ---
LEFT PIV D/C'D WITH CATHETER INTACT, BAND AID TO SITE. AMBULATED TO RESTROOM.
--- NOTE | 2019-01-16 16:21 | NUR ---
3CC OF AIR REMOVED FROM TR BAND WITH NO BLEEDING NOTED. DISCHARGE INSTRUCTIONS ALONG WITH PRESCRIPTION FOR PLAVIX, SOTALOL AND XARELTO GIVEN, PATIENT VERBALIZED UNDERSTANDING. XARELTO SAMPLE ALSO GIVEN.
--- NOTE | 2019-01-16 16:35 | NUR ---
3CC OF AIR REMOVED FROM TR BAND WITH NO BLEEDING NOTED.
--- NOTE | 2019-01-16 16:51 | NUR ---
ALL REMAINING AIR HAS BEEN WEANED FROM TR BAND WITH NO BLEEDING NOTED. 2X2 AND TEGADERM PLACED TO SITE. FINGERS WARM, PULSES PALPABLE, PT DENIES ANY NV DEFICIT. WRIST IMMOBILIZER IN PLACE. PT DRESSED FOR DC WITH ASSIST. IS ALERT AND DENIES ANY C/O.
--- NOTE | 2019-01-16 16:54 | NUR ---
PT ESCORTED TO PRIVATE AUTO VIA WC BY NURSE WITH FRIEND DRIVING HER HOME. PT IS ALERT AND DENIES ANY C/O UPON DC. PT HAS ALL PERSONAL BELONGINGS AND DC INSTRUCTIONS.
--- NOTE | 2019-01-17 15:13 | OP ---
PATIENT NAME: BANDAR STEPHENS MEDICAL RECORD: [id number] :47 LOCATION[facility] ADMISSION DATE:01/15/19 SURGEON: HARMAN CAGLE MD DATE OF OPERATION: 01/16/2019 DATE OF SERVICE: 01/16/2019 PROCEDURES: 1. PTCA, LAD. 2. PTCA, LAD diagonal. 3. Left heart catheterization. 4. Selective coronary angiography. 5. Left ventriculogram. INDICATION: Angina and coronary artery disease. PROCEDURE IN DETAIL: After informed consent was obtained and after a detailed description of the risks, benefits as well as alternative therapies, the patient elected to proceed with angiogram and angioplasty. The right radial area was prepped and draped in normal sterile fashion. Right radial artery was cannulated via modified Seldinger technique with placement of 6-Yoruba sheath. All catheters exchanged through this sheath. FINDINGS: The left ventriculogram was performed in standard 30-degree OCAMPO view reveals global hypokinesis throughout all segments. Overall ejection fraction is 30 to 35%. SELECTIVE CORONARY ANGIOGRAPHY: 1. Left main has no significant angiographic disease. 2. Left anterior descending has stents in the LAD and LAD diagonal: The diagonal has 90% in-stent restenosis. The LAD has approximately 70% in-stent restenosis. 3. The left circumflex has moderate irregularities, but no flow-limiting stenosis. 4. Right coronary has moderate irregularities, but no flow-limiting stenosis. 5. DC cardioversion was performed successfully with 1 shock at 275 joules restoring sinus rhythm. PTCA OF THE LAD AND LAD DIAGONAL: The balloon used for both the LAD diagonal and LAD was a 2.5 x 12 mm balloon, taken up to 17 atmospheres. Result was 0% residual stenosis. OVERALL IMPRESSION: Successful percutaneous transluminal coronary angioplasty for in-stent restenosis of the left anterior descending and left anterior descending diagonal, both going from 70% to 90% initial stenosis to 0% residual. Successful DC cardioversion from atrial fibrillation to sinus rhythm. TRANSINT:[id number] Voice Confirmation ID: [id number] DOCUMENT ID: [id number] OPERATIVE REPORT [id number] BANDAR STEPHENS HARMAN CAGLE MD at 1513 CC: [id number] DICTATION DATE: 01/16/19 1242 BOILER ENGINEER: 01/16/19 1308 DIS IN 01/16/19 [facility] [address] [facility] [place] [address]
--- NOTE | 2019-01-17 15:13 | DS ---
PATIENT:BANDAR STEPHENS :47 MEDICAL RECORD: [id number] DISCHARGE SUMMARY ADMISSION DATE: 01/15/19 DISCHARGE DATE: 01/16/19 DISCHARGE DIAGNOSES: 1. Atrial fibrillation. 2. DC cardioversion this admission. 3. Angina. 4. Coronary artery disease. 5. PTCA, LAD diagonal for in-stent restenosis. HOSPITAL COURSE: Mrs. Stephens presents with angina and new onset atrial fibrillation. She was given Eliquis and sotalol, underwent DC cardioversion as she failed to convert pharmacologically. Cardiac catheterization revealed in-stent restenosis of the LAD and LAD diagonal, both of these underwent angioplasty. She was discharged on Plavix 75 mg a day x 14 days, Xarelto 20 mg a day along with sotalol 80 mg b.i.d. Will follow up with [facility] within a month. TRANSINT:[id number] Voice Confirmation ID: [id number] DOCUMENT ID: [id number] HARMAN CAGLE MD at 1513 CC: [id number] DICTATION DATE: 01/16/19 1240 SUPERVISOR HOUSECLEANER: 01/16/19 2258 DIS IN 01/16/19 [place] [id number] [place] [id number]
== END 2019-01-16 16:56 | disposition home or self-care (01) ==
LOC: D.M2 11:55 → OBSVTIME 11:56 → D.CLR 01-16 15:17
PROVIDERS: ADMIT Internal Medicine Interventional Cardiology; ATTEND Internal Medicine Interventional Cardiology
DX: I25.119 Atherosclerotic heart disease of native coronary artery with unspecified angina pectoris (principal); T82.855A Stenosis of coronary artery stent, initial encounter; Y83.8 Other surgical procedures as the cause of abnormal reaction of the patient, or of later complication, without mention of misadventure at the time of the procedure; I48.91 Unspecified atrial fibrillation; I10 Essential (primary) hypertension

== ENCOUNTER 2019-01-20 18:06 | Emergency (ER) | payer MEDICARE, OTHER ==
[~2019-01-20] VITALS: Ht 170.2 cm; Wt 81.4 kg
[~2019-01-20 18:06] MED LIST changes: +BETAPACE 80 MG80 MG PO; +XARELTO20 MG PO
[2019-01-20 18:59] VITALS: Ht 170.2 cm; Wt 81.4 kg
[2019-01-20] MEDS ORDERED: ULTRAM50 MG PO (20:51)
[2019-01-20 21:15] VITALS: BP 132/74
== END 2019-01-20 21:15 | disposition home or self-care (01) ==
LOC: D.ER 18:06
DX: S63.501A Unspecified sprain of right wrist, initial encounter (principal); I10 Essential (primary) hypertension

== ENCOUNTER 2019-02-13 12:53 | Outpatient (CLI) | payer MEDICARE, OTHER ==
[~2019-02-13] VITALS: Ht 170.2 cm; Wt 81.8 kg
--- NOTE | ~2019-02-13 | DS ---
PATIENT:BANDAR STEPHENS :47 MEDICAL RECORD: [id number] DISCHARGE SUMMARY ADMISSION DATE: 02/13/19 DISCHARGE DATE: 02/14/19 DISCHARGE DIAGNOSES: 1. Shortness of breath, dyspnea on exertion. 2. Atrial fibrillation. 3. Coronary artery disease. HOSPITAL COURSE: Mrs. Stephens presents with shortness of breath, dyspnea on exertion, pulmonary edema, found to be back in atrial fibrillation. Her sotalol was discontinued. She was given IV Cordarone, switching to p.o. Cordarone and underwent successful DC cardioversion. Discharged home with the addition of Cordarone 200 mg b.i.d. to her medical regimen. TRANSINT:[id number] Voice Confirmation ID: [id number] DOCUMENT ID: [id number] HARMAN CAGLE MD CC: [id number] DICTATION DATE: 02/14/19 1154 UNDERTAKER ASSISTANT: 02/15/19 0224 DEP CLI 02/14/[address] [address]
--- NOTE | ~2019-02-13 | HEMODYNAMI ---
PATIENT:BANDAR STEPHENS MEDICAL RECORD: [id number] : 47 LOCATION:[facility] D.2116 ADMISSION DATE: 02/13/19 Generatedon:02/14/201911:58 Patient name: BANDAR STEPHENS Patient #: [id number] SSN: : 1945 Date of study: 02/14/2019 Page: Of Hemodynamic Procedure Report Patient Data Patient Demographics Procedure consent was obtained First Name: BANDAR Gender: Female Last Name: ANGELO : 1945 [facility] Initial: AUGUST Age: 73 year(s) Patient #: [id number] Race: Additional ID: [id number] Contact details Address: [place] [address] State: [place] City: [place] Zip code: [address] Past Medical History Allergies Allergen Reaction Date Comments Reported Sulfa drugs 11/20/2014 Sulfa drugs 04/30/2018 Sulfa drugs 02/14/2019 Admission Admission Data Admission Date: 02/13/2019 Admission Time: 12:53 Room #: D.2116 Height (in.): 67 BSA: 1.92 (m2) Height (cm.): 170.18 BMI: 27.57 (kg/m2) Weight (lbs.): 176 Weight (kg.): 79.83 Procedure Procedure Types Cath Procedure Diagnostic Procedure Cardioversion External Procedure Description Procedure Date Procedure Date: 02/14/2019 Procedure Start Time: 11:46 Procedure End Time: 11:56 Procedure Staff Name Function Ruslan Alonso MD Additional personnel Max Ivory MD Performing Physician Maureen Chacon RT Monitor Rosalee An RN Nurse Procedure Data Cath Procedure Fluoroscopy Diagnostic fluoroscopy Total fluoroscopy Time: 0 time: 0 min min Diagnostic fluoroscopy Total fluoroscopy dose: 0 dose: 0 mGy mGy Estimated blood loss: 0 ml Procedure Complications No complications Procedure Medications Medication Administration Route Dosage 0.9% NaCl I.V. 100 ml/hr Oxygen etCO2 Nasal cannula 2 l/min Refer to Anesthesia Notes for Sedation Medications Hemodynamics Rest BSA: 1.92 (m2) O2 Consumption: Estimated: 178.69 (ml/min) O2 Consumption indexed : Estimated:93.07 (ml/min/m) Heart Rate: 74 (bpm) Snapshots Pre Cath Intra NCS Post Cath Vital Signs Time Heart Resp SPO2 etCO2 NIBP (mmHg) Rhythm Pain Sedation Rate (ipm) (%) (mmHg) Status Level (bpm) 11:45:28 86 23 99 23 170/116(148) A-Fib 0 (11) 10(A) , No pain 11:50:25 59 19 98 25.5 142/87(123) SB 0 (11) 5(A) , No pain 11:54:39 60 27 99 34.5 141/91(124) SB 0 (11) 10(A) , No pain Medications Time Medication Route Dose Verified Delivered Reason Notes Effective ness by by 11:47:42 0.9% NaCl I.V. 100 Max Turk used for ml/hr Cachorro An [employer] industrial development consultant 11:47:50 Oxygen etCO2 2 Max Pottera used for Nasal l/min Cachorro An procedure cannula RN 11:47:55 Refer to Max Turk Anesthesia Cachorro An Notes for RN Sedation Medications Procedure Log Time Note 11:23:58 Signed procedure consent form obtained from patient. 11:24:00 Diagnostic Cath status Urgent 11:24:01 Time tracking: Regular hours (M-F 7:00 - 5:00) 11:24:04 Plan of Care:Hemodynamics will remain stable., Cardiac rhythm will remain stable., Comfort level will be maintained., Respiratory function will remain adequate., Patient/ family verbilizes understanding of procedure., Procedure tolerated without complication., Recovers from procedure without complications.. 11:24:21 Rosalee An RN sent for patient. Start room use. 11:37:39 Patient arrived from Med II to CCL 1. Patient remains on bed/stretcher for procedure. 11:37:41 Warm blankets applied, and anton hugger turned on for patient comfort. 11:37:42 Correct patient and procedure confirmed by team. 11:37:43 ECG and BP/O2 sat monitors applied to patient. 11:44:12 Vital chart was started 11:44:15 Baseline sample Acquired. 11:44:18 Rhythm: atrial fibrillation 11:44:19 Full Disclosure recording started 11:44:20 Pre-op teaching completed and patient verbalized understanding. 11:44:20 Pre-procedure instructions explained to patient. 11:44:21 Family unavailable. 11:44:28 Patient NPO since Midnight. 11:44:33 Patient allergic to Sulfa drugs 11:44:35 Is patient on blood thinner?Yes 11:44:39 ACC The patient was administered the following blood thiners within the last 24 hours: Xarelto 11:44:41 Patient diabetic? No. 11:44:43 Previous problem with sedation/anesthesia? No ? 11:44:44 Snore? Yes 11:44:45 Sleep apnea? No 11:44:46 Deviated septum? No 11:44:47 Opens mouth fully? Yes 11:44:48 Sticks out tongue? Yes 11:44:49 Airway obstruction? No ? 11:44:51 Dentures? No ? 11:44:58 IV patent on arrival in left hand with 0.9% NaCl at [facility]. 11:45:01 Lab results completed and on chart. 11:45:05 --------ALL STOP TIME OUT------ 11:45:06 Final Timeout: patient, procedure, and site verified with staff and physician. All members of the team are in agreement. 11:45:22 Fire Safety Assessment: C--Open oxygen or nitrous oxide is being used. 11:45:24 Physical assessment completed. ASA score P 2 - A patient with mild systemic disease as per Max Ivory MD. 11:45:27 Sedation plan: IV Moderate Sedation Medication:Propofol 11:45:29 Ruslan Alonso MD present and monitoring patient for TIVA. 11:45:41 Quick Combo opened to sterile field. 11:45:53 Patient Height : 67 inches 11:45:56 Patient Weight : 176 lbs 11:46:31 Procedure started. 11:46:32 ------Cardioversion------ 11:46:34 Quick combo pads placed on patients chest and back. 11:47:42 0.9% NaCl 100 ml/hr I.V. was administered by Rosalee An RN; used for procedure; 11:47:50 Oxygen 2 l/min etCO2 Nasal cannula was administered by Rosalee An RN; used for procedure; 11:47:55 Refer to Anesthesia Notes for Sedation Medications was administered by Rosalee An RN; ; 11:49:14 Defibrillator synced and charged to 275 Joules. 11:49:22 Shock delivered. 11:49:50 Patient cardioverted to sinus bradycardia. 11:49:55 Procedure ended.(Physican Out) 11:50:09 Fluoroscopy time 00.00 minutes. 11:50:11 Fluoroscopy dose: 0 mGy 11:50:11 Flurop Dose total: 0 11:50:17 Post-procedure physical assessment completed. ASA score P 2 - A patient with mild systemic disease as per Max Ivory MD. 11:50:19 Post procedure rhythm: sinus bradycardia 11:51:09 Estimated blood loss: 0 ml 11:51:11 Patient needs reinforcement of post procedure teaching. 11:51:11 Post procedure instruction explained to patient.Patient verbalizes understanding. 11:52:05 Procedure and supply charges have been captured, reviewed, submitted and are correct. 11:52:07 Procedure Complication : No complications 11:54:52 Report given to Pre/Post Procedure Room. 11:54:54 Patient transfered to Pre/Post Procedure Room with Bed. 11:54:57 See physician's report for complete and final results. 11:56:31 Vital chart was stopped 11:56:32 Full Disclosure recording stopped 11:56:32 Procedure ended. 11:56:39 End room use (Document Last) Device Usage Item Manufacture Quantity Catalog Hospital Part Current Minimal Lot# / Name Number Charge Number Stock Stock Ammon bernal# Code Quick [employer] 1 [id number] Combo Signature Audit [place] Stage Time Signature Unsigned Intra-Procedure 02/14/2019 Maureen Chacon 11:56:52 AM RT(R) RT(R) 02/14/2019 11:57:35 AM Intra-Procedure 02/14/2019 Maureen Chacon 11:58:02 AM RT(R) Signatures Monitor : Maureen Chacon Signature : RT Date : Time : [facility] [address] [place] [address]
[~2019-02-13 12:53] MED LIST changes: +ULTRAM50 MG PO
[2019-02-13] MEDS ORDERED: OMEPRAZOLE40 MG PO (13:14)
[2019-02-13] MEDS ORDERED: COLACE100 MG PO (13:15)
[2019-02-13 14:31] VITALS: BP 168/117; Ht 170.2 cm; Wt 81.8 kg
[2019-02-13 17:18] VITALS: BP 156/89
--- NOTE | 2019-02-13 19:20 | NUR ---
INTRODUCED SELF TO PATIENT, PATIENT WATCHING TV IN ROOM. PATIENT SEEMS ANXIOUS ABOUT PROCEDURE TOMORROW.
[2019-02-13 20:00] VITALS: BP 152/80
--- NOTE | 2019-02-14 03:33 | NUR ---
PATIENT UP TO BATHROOM, ASSISTED BACK TO BED. RESP EVEN AND UNLABORED, NO NEEDS AT THIS TIME.
[2019-02-14 04:00] VITALS: BP 152/90
[2019-02-14 07:56] VITALS: BP 144/90
[2019-02-14 11:37] VITALS: BP 168/96
--- NOTE | 2019-02-14 12:05 | NUR ---
PT ARRIVED BY STRETCHER. PLACED ON MONITORS. SB WITH OCCASIONAL PACs. VSS. CALL LIGHT WITHIN REACH. WILL CONTINUE TO MONITOR.
[2019-02-14] MEDS ORDERED: AMIODARONE HCL200 MG PO (12:14)
--- NOTE | 2019-02-14 12:20 | NUR ---
PT SITTING UP AND EATING. VSS. PT STILL IN SINUS RHYTHM. RATE 52. BP 155/86
--- NOTE | 2019-02-14 12:50 | NUR ---
PIV D/C'D WITH CATH TIP INTACT. PT TOLERATED WELL. VSS. PT INSTRUCTED TO GET UP AND DRESSED. HR SR RATE 56. OCCASIONAL PACs.
--- NOTE | 2019-02-14 13:26 | NUR ---
PT DRESSED. AMBULATED TO RESTROOM. VOIDED WITHOUT DIFFICULTY. STEADY GAIT NOTED. DISCUSSED DISCHARGE INSTRUCTIONS WITH PT. SHE VOICED UNDERSTANDING. ALL BELONGINGS BROUGHT UP FROM M2 ROOM. PT REPORTS SHE HAS ALL BELONGINGS INCLUDING HER PURSE AND GLASSES. ALL CLOTHING ACCOUNTED FOR ALSO. WAITING ON PT'S RIDE TO ARRIVE.
--- NOTE | 2019-02-14 14:20 | NUR ---
PT'S RIDE ARRIVED. PT TAKEN DOWN TO VEHILCE BY WHEELCHAIR. NO S/S OF DISTRESS NOTED. ALL BELONGINGS AND PAPERWORK IN HAND.
--- NOTE | 2019-02-14 16:42 | OP ---
PATIENT NAME: BANDAR STEPHENS MEDICAL RECORD: [id number] :47 LOCATION:[facility] ADMISSION DATE: SURGEON: HARMAN CAGLE MD DATE OF OPERATION: 02/14/2019 PROCEDURE: DC cardioversion. INDICATION: Atrial fibrillation. PROCEDURE IN DETAIL: IV conscious sedation was per anesthesia. She received 1 shock restored sinus rhythm. OVERALL IMPRESSION: Successful DC cardioversion from atrial fibrillation to sinus rhythm. TRANSINT:[id number] Voice Confirmation ID: [id number] DOCUMENT ID: [id number] HARMAN CAGLE MD at 1642 CC: [id number] DICTATION DATE: 02/14/19 1155 TABLET COATER: 02/14/19 1231 DEP CLI 02/14/19 [id number] [place] [address]
== END 2019-02-14 14:20 | disposition home or self-care (01) ==
LOC: D.OPS 12:53 → D.M2 12:53 → D.CLR 02-14 12:00 → D.OPS 02-14 14:20
PROVIDERS: ATTEND Internal Medicine Interventional Cardiology
DX: I48.91 Unspecified atrial fibrillation (principal)

== ENCOUNTER 2019-08-27 16:38 | Emergency (ER) | payer MEDICARE, OTHER ==
[~2019-08-27 16:38] MED LIST changes: +AMIODARONE HCL200 MG PO
[2019-08-27 17:04] VITALS: Ht 170.2 cm
[2019-08-27] MEDS ORDERED: FUROSEMIDE40 MG PO (17:11)
[2019-08-27 17:32] LABS: BASOPHILS 0.6 % (0-2); EOSINOPHILS 2.3 % (0-7); HEMATOCRIT 42.2 % (36.0-48.0); HEMOGLOBIN 13.4 g/dL (12-16); IMMATURE GRANULOCYTES 0.5 % (0-5); LYMPHOCYTES 28.3 % (15-50); MCH 31.4 pg (26.0-34.0); MCHC 31.8 g/dL (31.0-37.0); MCV 98.8 fL (80.0-100.0); MEAN PLATELET VOLUME 9.9 fL (7.4-10.4); MONOCYTES 9.2 % (2-11); NEUTROPHILS 59.1 % (40-80); PLATELET COUNT 399 10x3/uL (130-400); RBC 4.27 10x6/uL (4.00-5.40); RDW 13.5 % (11.5-14.5); WBC 9.8 10x3/uL (4.8-10.8)
[2019-08-27 17:34] LABS: INR 1.02 (0.85-1.17); PROTIME 12.9 SECONDS (11.6-15.0)
[2019-08-27 17:35] LABS: APTT 28.1 SECONDS (22.8-39.4)
[2019-08-27 17:59] LABS: CALC OSMOLALITY 278 mosm/kg (275-300); CALCIUM 8.2 mg/dL (8.5-10.1); CARBON DIOXIDE 25.2 mmol/L (21.0-32.0); CHLORIDE - SERUM 103 mmol/L (98-107); CREATININE - SERUM 1.7 mg/dL (0.6-1.3); POTASSIUM - SERUM 3.7 mmol/L (3.5-5.1); SODIUM 138 mmol/L (136-145); UREA NITROGEN 24 mg/dL (7-18); eGFR NON AFRICAN AMERICAN 31 mL/min (90-120)
[2019-08-27 18:06] LABS: ALBUMIN 3.6 g/dL (3.4-5.0); ALKALINE PHOSPHATASE 106 U/L (46-116); ALT (SGPT) 19 U/L (10-68); BILIRUBIN - TOTAL 0.56 mg/dL (0.2-1.3); CKMB 0.4 U/L (0.0-3.6); CREATINE KINASE 34 UL (21-215); MAGNESIUM - SERUM 2.2 mg/dL (1.8-2.4); PROTEIN - SERUM 7.7 g/dL (6.4-8.2); THYROID STIMULATING HORMONE 8.79 uIU/mL (0.36-3.74); TROPONIN-I < 0.017 ng/mL (0.000-0.060)
[2019-08-27 18:10] LABS: GLUCOSE 88 mg/dL (74-106)
[2019-08-27 19:44] VITALS: BP 166/92
== END 2019-08-27 19:44 | disposition other institution (70) ==
LOC: D.ER 16:38
PROVIDERS: Family Medicine
DX: I48.20 Chronic atrial fibrillation, unspecified (principal)